=== PATIENT | female | born 1930 | race Caucasian/White ===

== ENCOUNTER 2016-07-30 07:00 | Inpatient (IN) | payer OTHER, MEDICARE ==
[~2016-07-30] VITALS: Ht 160 cm; Wt 64.4 kg
[~2016-07-30 07:00] MED LIST: ADVAIR 250-501 EACH INH; ALPRAZOLAM0.25 M1 PO; DURAGESIC1 EAC1 TOP; LEVOTHYROXINE125 MCG PO; LIDODERM 5% PAT1 PAT EXT; METRONIDAZOLE0.752 TOP; NIZATIDINE PO; PANTOPRAZOLE SO40 M1 PO; POLYETHYLE17 GM/Dos1 PO; PRINIVIL5 M1 PO; PROAIR HFA0.09 MG/Ac INH; RANITIDINE HYD150 M1 PO; SYMBICORT 80-10.2 GM PO; SYSTANE LUBRICAN5 ML OP
[2016-08-09] MEDS ORDERED: ADVAIR 100-501 EACH PO (10:08)
[2016-08-09] MEDS ORDERED: PANTOPRAZOLE SO40 M1 PO (10:08)
[2016-08-09] MEDS ORDERED: LO-DOSE ASPIRIN81 MG PO (10:09)
[2016-08-10] MEDS ORDERED: POLYETHYLENE G255 GM PO (06:48)
--- NOTE | 2016-08-10 10:02 | Operative Report ---
Operative/Inv Procedure Report Surgery Date: 08/10/16 Name of Procedure: Endovascular repair of aortic aneurysm, main body 36 x 14 x 103. Contralateral limb 16 x 13 x 1 24, right extension 16 x 13 x 93. 12 Israeli sheath on the left side 16 Israeli sheath on the right side. Pre-Operative Diagnosis: Expanding infrarenal aortic aneurysm at 6.5 cm. COPD. Post-Operative Diagnosis: Same Estimated Blood Loss: scant Surgeon/Chemical Packager: VALERIY RALPH,RADHA Nasht. Anesthesia: local monitored anesthesi Complications: None Condition: Good Operative/Procedure Note Note: The patient was correctly identified and brought to the operating room. Both groins prepped and draped in usual fashion. Access performed with ultrasound guidance 7 Israeli sheaths bilaterally. 2 Perclose devices were deployed in each groin. Documentation was performed by angiogram that the common femoral arteries were cannulated. Guidewire and catheter was placed into the aorta. Angiogram was performed which identified the renal arteries. The patient was heparinized. The main body was deployed via the right side. Measurements noted above. Contralateral limb was cannulated and the contralateral limb deployed. The same was done in the right side. The entire graft was angioplastied. Completion angiogram showed no evidence of a type I or type II endoleak. The 2 Perclose is any side were deployed and there was no bleeding. There was adequate arterial flow into both feet unchanged from prior to the procedure. Sterile dressings were applied. The patient had a procedure well she remained extubated and was taken to the recovery room area. Findings: Large infrarenal aortic aneurysm 6.5 cm. Small iliacs and common femoral arteries. Discharge Disposition: Critical Care Unit CC: SHARI RALPH,AMELIA Segal
[2016-08-10 12:50] LABS: ABSOLUTE BASOPHIL COUNT 0 /CUMM (0.0-0.2); ABSOLUTE EOSINOPHIL COUNT 0.1 /CUMM (0.0-0.7); ABSOLUTE GRANULOCYTE CT 4.2 /CUMM (1.4-6.5); ABSOLUTE LYMPH COUNT 0.7 /CUMM (1.2-3.4); ABSOLUTE MONOCYTE COUNT 0.5 /CUMM (0.10-0.60); BASOPHIL % 0.3 % (0.0-2.0); EOSINOPHIL % 1.8 % (0-5); GRANULOCYTE % 76.9 % (42.2-75.2); HEMATOCRIT 33.7 % (37-47); MEAN CORPUSCULAR HGB 30.6 PG (27.0-31.0); MEAN CORPUSCULAR HGB CONC 32.8 G/DL (33.0-37.0); MEAN CORPUSCULAR VOLUME 93.1 FL (81.0-99.0); MEAN PLATELET VOLUME 7.2 FL (7.4-10.4); PLATELET COUNT 161 /CUMM (130-400); RBC DISTRIBUTION WIDTH 13.4 % (11.5-14.5); RED BLOOD CELL CT 3.62 /CUMM (4.20-5.40); WHITE BLOOD CELL COUNT 5.4 /CUMM (4.8-10.8)
--- NOTE | 2016-08-10 14:14 | Cons- Cardiology ---
General Information and HPI Consulting Request Date of Consult: 08/10/16 Requested By: RADHA CROOKS MD Reason for Consult: Post operative cardiac management Source of Information: patient, old records Exam Limitations: no limitations History of Present Illness: Pleasant 86 year old female known to me. THe patient is now in the PACU following her endovascular AAA repair. The procedure went well. Subsequently, the patient was noted to have loss of pulses in her left LE and was brought back to the OR. At the moment, she is stable in the PACU. She is awake and alert with no complaints or symptoms. She remains hemodynamically stalbe. Allergies/Medications Allergies: Coded Allergies: NO KNOWN ALLERGIES (NO) (10/12/10) Home Med List: Alprazolam 0.25 MG TABLET 1 TAB PO DAILY NEEDED anxiety (Reported) Aspirin (Lo-Dose Aspirin EC) 81 MG TABLET.DR 1 TAB PO DAILY PROPHO (Reported) Fentanyl (Duragesic) 1 EACH PATCH.TD72 1 PAT TOP Q3D pain (Reported) Fluticasone-Salmeterol (Advair 100-50 Diskus) 100 MCG-50 MCG/DOSE BLST.W.DEV 1 PUFF PO DAILY COPD (Reported) Levothyroxine Sodium 125 MCG TABLET 1 TAB PO DAILY thyroid (Reported) Lisinopril (Prinivil) 5 MG TABLET 1 TAB PO DAILY blood pressure (Reported) Pantoprazole Sodium 40 MG TABLET.DR 1 TAB PO DAILY GERD (Reported) Peg-400/Propylene Glycol (Systane Lubricant Eye Drops 0.4%-0.3% 5 Ml) (Unknown Strength) PUMA 2 DROP OP BID DRY EYES (Reported) Polyethylene Glycol 3350 17 GRAM/DOSE POWDER 17 GM PO DAILY constipation ( Reported) Current Medications: Current Medications Sig/Roosevelt Start time Last Medication Dose Route Stop Time Status Admin Cefazolin Sodium 1,000 MG IQ8 08/10 1900 AC IV 08/11 0001 Protamine Sulfate 50 MG .STK-MED ONE 08/10 08 DC IV 08/10 08 Past History Medical History Neurological: migraine EENT: hearing loss, ROSEACEA DRY EYES Cardiovascular: hypertension, hyperlipidemia Respiratory: bronchitis, COPD, emphysema, pneumonia Gastrointestinal: constipation, GERD, "STOMACH PROBLEMS" Hepatic: NONE Renal: NONE Musculoskeletal: sciatica, R KNEE CYST Psychiatric: SHAKING Endocrine: hypothyroidism Blood Disorders: NONE Cancer(s): L BREAST CA CLOSING MANAGER/Reproductive: NONE Surgical History Surgical History: cholecystectomy, hysterectomy, laminectomy, lumpectomy, L BREAST TUMOR REMOVED SPINAL SURGERY Psychosocial History Who Do You Live With? self Services at Home: None Primary Language: Nepali Smoking Status: Unknown If Ever Smoked Functional Ability ADLs Independent: dressing, eating, toileting, bathing. Ambulation: independent Exam & Diagnostic Data Vital Signs and I&O BP 128/80 P 80 regular R 14 Physical Exam: WD, elderly WF with VSS; alert and oriented HEENT: normal Neck: normal Chest: Clear bilaterally Heart: S1, S2, 1-2/6 systolic murmur Abdomen: normal Ext: normal Labs/Miguel Results: Laboratory Tests 08/10 1230 Chemistry Sodium (137 - 145 mmol/L) 139 Potassium (3.5 - 5.1 mmol/L) 4.0 Chloride (98 - 107 mmol/L) 102 Carbon Dioxide (22 - 30 mmol/L) 32 H Anion Gap (5 - 16) 5 BUN (7 - 17 mg/dL) 12 Creatinine (0.5 - 1.0 mg/dL) 0.6 Estimated GFR (>60 ml/min) > 60 BUN/Creatinine Ratio (7 - 25 %) 20.0 Phosphorus (2.5 - 4.5 mg/dL) 4.1 Magnesium (1.6 - 2.3 mg/dL) 1.8 Hematology CBC w Diff NO MAN DIFF REQ WBC (4.8 - 10.8 /CUMM) 5.4 RBC (4.20 - 5.40 /CUMM) 3.62 L Hgb (12.0 - 16.0 G/DL) 11.1 L Hct (37 - 47 %) 33.7 L MCV (81.0 - 99.0 FL) 93.1 MCH (27.0 - 31.0 PG) 30.6 RDW (11.5 - 14.5 %) 13.4 Plt Count (130 - 400 /CUMM) 161 MPV (7.4 - 10.4 FL) 7.2 L Gran % (42.2 - 75.2 %) 76.9 H Lymphocytes % (20.5 - 51.1 %) 12.1 L Monocytes % (1.7 - 9.3 %) 8.9 Eosinophils % (0 - 5 %) 1.8 Basophils % (0.0 - 2.0 %) 0.3 Absolute Granulocytes (1.4 - 6.5 /CUMM) 4.2 Absolute Lymphocytes (1.2 - 3.4 /CUMM) 0.7 L Absolute Monocytes (0.10 - 0.60 /CUMM) 0.5 Absolute Eosinophils (0.0 - 0.7 /CUMM) 0.1 Absolute Basophils (0.0 - 0.2 /CUMM) 0 PUBS MCHC (33.0 - 37.0 G/DL) 32.8 L Diagnostic Data EKG Results Pending Assessment/Plan Assessment/Plan Assessment: 1. AAA; s/p endovascular repair 2. Calcified coronary arteries on CT 3. HTN 4. HLD 5. COPD 6. Hypothyroid Recommendations: - ICU overnight - Please check ECG tonite and in AM - Otherwise as per the vascular surgery service. Consult Acknowledgment - Thank you for your consult request.
[2016-08-10 16:00] VITALS: BP 151/71
--- NOTE | 2016-08-10 16:06 | Admission Core Measures ---
Admission Lab Results I reviewed the following labs: Laboratory Tests 08/10 1230 Chemistry Sodium (137 - 145 mmol/L) 139 Potassium (3.5 - 5.1 mmol/L) 4.0 Chloride (98 - 107 mmol/L) 102 Carbon Dioxide (22 - 30 mmol/L) 32 H Anion Gap (5 - 16) 5 BUN (7 - 17 mg/dL) 12 Creatinine (0.5 - 1.0 mg/dL) 0.6 Estimated GFR (>60 ml/min) > 60 BUN/Creatinine Ratio (7 - 25 %) 20.0 Phosphorus (2.5 - 4.5 mg/dL) 4.1 Magnesium (1.6 - 2.3 mg/dL) 1.8 Hematology CBC w Diff NO MAN DIFF REQ WBC (4.8 - 10.8 /CUMM) 5.4 RBC (4.20 - 5.40 /CUMM) 3.62 L Hgb (12.0 - 16.0 G/DL) 11.1 L Hct (37 - 47 %) 33.7 L MCV (81.0 - 99.0 FL) 93.1 MCH (27.0 - 31.0 PG) 30.6 RDW (11.5 - 14.5 %) 13.4 Plt Count (130 - 400 /CUMM) 161 MPV (7.4 - 10.4 FL) 7.2 L Gran % (42.2 - 75.2 %) 76.9 H Lymphocytes % (20.5 - 51.1 %) 12.1 L Monocytes % (1.7 - 9.3 %) 8.9 Eosinophils % (0 - 5 %) 1.8 Basophils % (0.0 - 2.0 %) 0.3 Absolute Granulocytes (1.4 - 6.5 /CUMM) 4.2 Absolute Lymphocytes (1.2 - 3.4 /CUMM) 0.7 L Absolute Monocytes (0.10 - 0.60 /CUMM) 0.5 Absolute Eosinophils (0.0 - 0.7 /CUMM) 0.1 Absolute Basophils (0.0 - 0.2 /CUMM) 0 PUBS MCHC (33.0 - 37.0 G/DL) 32.8 L Admission Meds I reviewed the following Meds: Current Medications Sig/Roosevelt Start time Last Medication Dose Stop Time Status Admin Alprazolam 0.25 MG DAILY NEEDED 08/10 1545 AC (Xanax) 08/17 1544 Artificial Tears 2 GTT TID 08/10 1600 AC (Tears Natural) Aspirin Buffered 81 MG DAILY 08/11 1000 AC (Ecotrin) Budesonide/ 2 PUF BID 08/10 2200 AC Formoterol Fumarate (SYMBICORT) Cefazolin Sodium 1,000 MG IQ8 08/10 1900 AC (Kefzol-Ancef Inj) 08/11 0001 Dextrose/Sodium 1,000 ML Q13H 08/10 1515 AC Chloride (D5-Normal Saline) Docusate Sodium 100 MG BID 08/10 2200 AC (Colace) Heparin Sodium 5,000 UNIT Q8 08/10 1400 AC (Porcine) Levothyroxine Sodium 0.125 MG DAILY AC 08/11 0700 AC (Synthroid) Lisinopril 5 MG DAILY 08/10 1537 AC (Prinivil) Morphine Sulfate 2 MG Q4P PRN 08/10 1515 AC (Morphine) Omeprazole 20 MG DAILY AC 08/11 0700 AC (Prilosec) Oxycodone/ 1 TAB Q4P PRN 08/10 1515 AC Acetaminophen (Percocet) Oxycodone/ 2 TAB Q4P PRN 08/10 1515 AC Acetaminophen (Percocet) Polyethylene Glycol 17 GM DAILY 08/11 1000 AC (Miralax) Acute Coronary Syndrome Inclusion Criteria ACS Diagnosis No Inpatient Core Measures LDL Reminder: If No, please order W/I first 24hr of stay Congestive Heart Failure Inclusion Criteria CHF Diagnosis No Cerebrovascular accident Inclusion Criteria CVA/TIA Diagnosis No Inpatient Core Measures Bedside Swallow Eval Reminder: If BSE failed, place ST order Antithrombotic Reminder: Order Antithrombotic Medication by end of day 2 Antithrombotic Reminder: Document Reason Antithrombotic Not ordered by end of day 2 AFIB/Flutter Reminder: If Present, add to problem list AFIB/Flutter Reminder: Order Anticoag Medication for pts with AFIB/Flutter Atherosclerosis Reminder: If Present, add to problem list LDL Reminder: If No, please order W/I first 24hr of stay PT Order Reminder: If No, please order Venous thromboembolism Inpatient Core Measures VTE Risk Factors: Age > 40, Surgery VTE Prophylaxis Ordered Inpt Mech&PHA Contraindicated No Mech VTE prophylaxis d/t Lower limb ischemia, Surgical procedure LE No VTE Pharm Prophylaxis d/t No contraindications Inclusion Criteria - Per Current guidelines, there needs to be overlap - treatment for the first 5 days of Warfarin therapy. - Parenteral Anticoagulation (IV or SC) needs to be - given along with Warfarin therapy. VTE Diagnosis No VTE Type NONE VTE Confirmed by (Test) NONE Problem List As ranked by this Provider includes Assessment & Plan 1. Status post percutaneous abdominal aortic aneurysm (AAA) repair HOME MEDS Home Med List Alprazolam 0.25 MG TABLET 1 TAB PO DAILY NEEDED anxiety (Reported) Aspirin (Lo-Dose Aspirin EC) 81 MG TABLET.DR 1 TAB PO DAILY PROPHO (Reported) Fentanyl (Duragesic) 1 EACH PATCH.TD72 1 PAT TOP Q3D pain (Reported) Fluticasone-Salmeterol (Advair 100-50 Diskus) 100 MCG-50 MCG/DOSE BLST.W.DEV 1 PUFF PO DAILY COPD (Reported) Levothyroxine Sodium 125 MCG TABLET 1 TAB PO DAILY thyroid (Reported) Lisinopril (Prinivil) 5 MG TABLET 1 TAB PO DAILY blood pressure (Reported) Pantoprazole Sodium 40 MG TABLET.DR 1 TAB PO DAILY GERD (Reported) Peg-400/Propylene Glycol (Systane Lubricant Eye Drops 0.4%-0.3% 5 Ml) (Unknown Strength) PUMA 2 DROP OP BID DRY EYES (Reported) Polyethylene Glycol 3350 17 GRAM/DOSE POWDER 17 GM PO DAILY constipation ( Reported)
--- NOTE | 2016-08-10 16:20 | PN- Vascular Surgery ---
Subjective Subjective: poc s/p endo aaa no major complaints now denies cp, sob, no n+v Objective Vital Signs and I&Os hypertensive now Physical Exam: cv: rrr lungs: clear abd: soft, +bs ext: left groin small hematoma sanguinous drainage on dressing distal dp/pt pulses intact legs cool motor/sensory intact granados: clear urine Assessment/Plan Assessment/Plan vascualr stable hypertensive now plan hep sq fro dvt prophylaxis q1 vascular checks restart all home meds plan for home d/c in am Core Measures/Miscellaneous Venous Thromboembolism VTE Risk Factors: Age > 40, Surgery VTE Contraindications: No Contraindications VTE Prophylaxis Ordered Inpt: Mech/Pharm Contraindicate VTE Diagnosis: No VTE Type: NONE VTE Confirmed by (Test): NONE Beta Ramakrishna Is Beta Ramakrishna a Home Med? No Antibiotics Is Patient on Antibiotics? Yes
[2016-08-10] MEDS ORDERED: PERCOCET 5-3251 EACH PO (23:18)
--- NOTE | 2016-08-10 23:23 | Patient Discharge Instructions ---
Discharge Instructions General Discharge Information You were seen/treated for: ABDOMINAL AORTIC ANEURYSM You had these procedures: ENDOVASCULAR AAA REPAIR, TAKE BACK TO OR FOR REMOVAL OF SHEATH Watch for these problems: FEVER >101, COLD LEG, SEVERE LEG PAIN, CHEST PAIN, DIFFICULTY BREATHING No bath, but you may shower: Yes Other wound care: IF DRESSING BECOMES SOILED, IT MAY BE CHANGED WITH GAUZE AND TEGADERM. Diet Continue normal diet: Yes Activity Full Activity/No Limits: No Activity Self Limited: Yes Pounds, do NOT lift more than: 5 Activity Limited to: Weight bear as tolerated Other activity limits: YOU MAY WEIGHT BEAR AND AMBULATE TOLERATED. NO STRENUOUS ACTIVITY OR HEAVY LIFTING. Acute Coronary Syndrome Inclusion Criteria At DC or during hospital stay patient has or had the following: ACS DIAGNOSIS No Discharge Core Measures Meds if any: Prescribed or Continued at Discharge Meds if any: NOT Prescribed or Continued at Discharge Congestive Heart Failure Inclusion Criteria At DC or during hospital stay patient has or had the following: CHF DIAGNOSIS No Discharge Core Measures Meds if any: Prescribed or Continued at Discharge Meds if any: NOT Prescribed or Continued at Discharge Cerebrovascular accident Inclusion Criteria At DC or during hospital stay patient has or had the following: CVA/TIA Diagnosis No Discharge Core Measures Meds if any: Prescribed or Continued at Discharge Meds if any: NOT Prescribed or Continued at Discharge Venous thromboembolism Inclusion Criteria VTE Diagnosis No VTE Type NONE VTE Confirmed by (Test) NONE Discharge Core Measures - Per Current guidelines, there needs to be overlap - treatment for the first 5 days of Warfarin therapy. - If discharged on Warfarin prior to 5 days of - overlap therapy, the patient will need to be - assessed for post discharge needs including - *Post discharge parental anticoagulation - *Warfarin and/or parental anticoagulation education - *Follow up date to check INR post discharge At least 5 days overlap therapy as Inpatient No Meds if any: Prescribed or Continued at Discharge Note: Overlap Therapy is Warfarin and Anticoagulant Meds if any: NOT Prescribed or Continued at Discharge
[2016-08-11 05:39] LABS: ABSOLUTE BASOPHIL COUNT 0 /CUMM (0.0-0.2); ABSOLUTE EOSINOPHIL COUNT 0.1 /CUMM (0.0-0.7); ABSOLUTE MONOCYTE COUNT 1.1 /CUMM (0.10-0.60); BASOPHIL % 0 % (0.0-2.0); HEMATOCRIT 30.9 % (37-47); PLATELET COUNT 157 /CUMM (130-400)
[2016-08-11 05:47] LABS: ABSOLUTE GRANULOCYTE CT 10.1 /CUMM (1.4-6.5); ABSOLUTE LYMPH COUNT 0.7 /CUMM (1.2-3.4); EOSINOPHIL % 0.6 % (0-5); GRANULOCYTE % 84.2 % (42.2-75.2); MEAN CORPUSCULAR HGB 31.3 PG (27.0-31.0); MEAN CORPUSCULAR HGB CONC 33.5 G/DL (33.0-37.0); MEAN CORPUSCULAR VOLUME 93.6 FL (81.0-99.0); MEAN PLATELET VOLUME 7.4 FL (7.4-10.4); RBC DISTRIBUTION WIDTH 13.5 % (11.5-14.5)
[2016-08-11 06:00] VITALS: BP 110/63
--- NOTE | 2016-08-11 06:02 | PN- Vascular Surgery ---
Subjective Subjective: Postoperative day #1 status post endovascular AAA repair, with take back to the OR for removal of sheath and patch repair due to loss of left lower extremity pulses. At this time, patient is seen in ICU. She has no major complaints. Admits to minor discomfort at the left groin site, but refusing pain medication. She had some mild nausea last night, which was relieved with Zofran area did she did spike a temp to 101.1 yesterday, but remains afebrile at this time. Otherwise denies headache, dizziness, chest pain, shortness of breath. [place] catheter and arterial line remain in place. Objective Vital Signs and I&Os Vital Signs Date Time Temp Pulse Resp B/P Pulse O2 O2 Flow FiO2 Ox Delivery Rate 08/11 0400 96 Nasal 2.0L Cannula 08/11 0000 96 Nasal 2.0L Cannula 08/10 2356 99.8 08/10 2318 101.1 08/10 2000 99 Nasal 2.0L Cannula 08/10 1705 97.0 78 19 120/75 08/10 1600 100 Nasal 2.0L Cannula 08/10 1600 97.0 74 21 151/71 100 Nasal 2.0L Cannula 08/10 1430 96 Nasal 2.0L Cannula Most recent temperatures are documented at 99.1 and 98.8. Heart rate in the 100s, blood pressure in the 130s to 150s over 80s to 90s. O2 sat is 95% on 2 L via nasal cannula. Intake & Output 08/11 0800 08/11 0000 08/10 1600 08/10 0800 08/10 0000 08/09 1600 Intake Total 740 Output Total 600 Balance 140 Intake, IV 500 Intake, Oral 240 Output, Urine 600 Patient 142 lb Weight Urine output is 100 mL's per hour. Physical Exam: Gen.: Patient is resting, but easily arousable. She is somewhat hard of hearing. No acute distress. Cardiac: Regular, borderline tachycardia Pulmonary: Lungs are clear bilaterally, but breaths are shallow. Extremities: The left groin dressing was saturated with blood, and subsequently changed by myself. There appears to be no active bleeding from the wound. No significant hematoma. Legs and feet are warm bilaterally. The right DP is palpable and the left DP is dopplerable. Patient is able to move her toes. Results Last 48 Hours of Labs: Laboratory Tests 08/11 08/10 0510 1230 Chemistry Sodium (137 - 145 mmol/L) Pending 139 Potassium (3.5 - 5.1 mmol/L) Pending 4.0 Chloride (98 - 107 mmol/L) Pending 102 Carbon Dioxide (22 - 30 mmol/L) Pending 32 H Anion Gap (5 - 16) Pending 5 BUN (7 - 17 mg/dL) Pending 12 Creatinine (0.5 - 1.0 mg/dL) Pending 0.6 Estimated GFR (>60 ml/min) > 60 BUN/Creatinine Ratio (7 - 25 %) Pending 20.0 Phosphorus (2.5 - 4.5 mg/dL) Pending 4.1 Magnesium (1.6 - 2.3 mg/dL) Pending 1.8 Hematology CBC w Diff MAN DIFF ORDERED NO MAN DIFF REQ WBC (4.8 - 10.8 /CUMM) Pending 5.4 RBC (4.20 - 5.40 /CUMM) Pending 3.62 L Hgb (12.0 - 16.0 G/DL) Pending 11.1 L Hct (37 - 47 %) Pending 33.7 L MCV (81.0 - 99.0 FL) Pending 93.1 MCH (27.0 - 31.0 PG) Pending 30.6 RDW (11.5 - 14.5 %) Pending 13.4 Plt Count (130 - 400 /CUMM) Pending 161 MPV (7.4 - 10.4 FL) Pending 7.2 L Gran % (42.2 - 75.2 %) Pending 76.9 H Lymphocytes % (20.5 - 51.1 %) Pending 12.1 L Monocytes % (1.7 - 9.3 %) Pending 8.9 Eosinophils % (0 - 5 %) Pending 1.8 Basophils % (0.0 - 2.0 %) Pending 0.3 Absolute Granulocytes (1.4 - 6.5 /CUMM) Pending 4.2 Segmented Neutrophils (42.2 - 75.2 %) Pending Absolute Lymphocytes (1.2 - 3.4 /CUMM) Pending 0.7 L Absolute Monocytes (0.10 - 0.60 /CUMM) Pending 0.5 Absolute Eosinophils (0.0 - 0.7 /CUMM) Pending 0.1 Absolute Basophils (0.0 - 0.2 /CUMM) Pending 0 PUBS MCHC (33.0 - 37.0 G/DL) Pending 32.8 L Assessment/Plan Assessment/Plan Patient is an 86-year-old female with history of hypertension, COPD, hyperlipidemia, migraines, and GERD who is now postoperative day #1 status post endovascular AAA, complicated by loss of pulses in the left lower extremity and subsequent take back to the OR for removal of the sheath. -Advance diet as tolerated. Hep-Lock IV fluids. -Follow-up this morning's labs. -Patient can use Tylenol as needed for discomfort. -Okay to remove arterial line and [place] catheter. We will await void. -Incentive spirometer, as the most likely cause of the fever yesterday was atelectasis due to shallow breathing. -24 hours of antibiotic prophylaxis complete. -Subcutaneous heparin for DVT prophylaxis until discharge. -Mobilize out of bed and plan for discharge today from ICU if cleared by cardiology. We will follow-up EKG this morning as per cardiology recommendations. Core Measures/Miscellaneous [place] Catheter Date In: 08/10/16 Still Needed? No Venous Thromboembolism VTE Risk Factors: Age > 40, Surgery VTE Contraindications: No Contraindications VTE Prophylaxis Ordered Inpt: Mech/Pharm Contraindicate VTE Diagnosis: No VTE Type: NONE VTE Confirmed by (Test): NONE Beta Ramakrishna Is Beta Ramakrishna a Home Med? No Antibiotics Is Patient on Antibiotics? No
--- NOTE | 2016-08-11 06:59 | Operative Report ---
Operative/Inv Procedure Report Surgery Date: 08/10/16 Name of Procedure: Left common femoral and / Profundaplasty endarterectomy Patch angioplasty Pre-Operative Diagnosis: s/p EVAR Left cosmetic assembler stenosis Post-Operative Diagnosis: same Estimated Blood Loss: less than 50ml Surgeon/Plastics Fabricator And Assembler: RADHA CROOKS MD Anesthesia: local monitored anesthesi Complications: none Condition: good Operative Indication: Left leg decrease pulses Operative/Procedure Note Note: The patient was correctly identifid and brought to the OR. Time out performed. Both groins prepped. Local anesthetic givem 30 cc, left groin. Incision made . Perclose found, and the PROCESS MAINTENANCE TECHNICIAN, Prifunda and SFA dissected. Proximal and distal control obtained. Endarterectomy done, high grade stenosis due to closing device and severe plaque. Endarterectomy carried down to profunda. Patch sawn. Blood reconstituted. Strong DP and PT signals prior to preopfrom EVAR. The wound closed in [address] Pt. taken to PACU in a satsifactory condition. Findings: High grad stenosi due to plaque and perclose. Discharge Disposition: Critical Care Unit CC: SHARI RALPH,AMELIA Segal
--- NOTE | 2016-08-11 07:04 | PN- Vascular Surgery ---
Surgical Brief Attending Note Brief Attending Note: Doing well, Exam strong signals, wound clean Restart all meds, hep lock IV Ambulate Advance diet Transfer to floor D/C home this PM or in AM if stable
--- NOTE | 2016-08-11 07:19 | Surg Short-stay <48hrs Dis Sum ---
Visit Information Visit Dates Admission Date: 08/10/16 Discharge Date: 08/12/16 Surgical Short Stay DC Summary Admission Diagnosis: Abdominal aortic aneurysm Final Diagnosis: Same Procedure(s): 08/10/2016 endovascular AAA repair with take back to the OR for removal of sheath due to pulseless left lower extremity. Summary/Significant Findings: Patient is an 86-year-old female who presented to [facility] on 08/10/2016 4 elective endovascular AAA repair. She was noted to have a pulseless left lower extremity in the recovery room, at which point the decision was made to return to the OR for exploration. Left groin hematoma was encountered and removal of the sheath with patch repair was performed. She returned to PACU and then the general medical floor in stable condition, with dopplerable signals in the left lower extremity and palpable signals in the right lower extremity. Her diet was slowly advanced and pain was well controlled. She had a fever 101.1 on postoperative day #0, but remained afebrile thereafter with use of incentive spirometer. She was mobilized out of bed and then subsequently cleared for discharge. Of ntoe, PT recommended STR, but pt and her family refused. They explain that she has plenty of support at home. They were accepting of home care services, including home PT, visiting nurse and HH aide. Condition at Discharge: Stable Discharge Disposition: home or self care Discharge instructions provided to patient/family: Yes Post discharge follow-up plan: If the left groin dressing becomes saturated, it can be changed to dry gauze with Tegaderm daily or every other day. Avoid soaking the wound. Follow-up with attending in 2 weeks for removal of haider.
[2016-08-11 08:00] VITALS: BP 122/72
--- NOTE | 2016-08-11 11:10 | RADIOLOGY REPORT ---
EXAMINATION: XR ABDOMEN MULTIPLE VIEWS CLINICAL INDICATION: Endovascular AAA repair in OR. COMPARISON: CT scan of the abdomen and pelvis dated 07/20/2016. TECHNIQUE/FINDINGS: C-arm equipment was dedicated to the operating room for the performance of a AAA repair. Several contrast runs were performed and are archived in PACS. Please refer to operative notes for interpretation. This is an administrative dictation only. FLUOROSCOPY TIME: 14 minutes 37 seconds. IMPRESSION: Endovascular AAA repair in OR.
[2016-08-11 13:40] VITALS: BP 98/50
[2016-08-11 16:32] VITALS: BP 86/42
[2016-08-11 18:10] VITALS: BP 94/50
[2016-08-12 01:23] VITALS: BP 110/549
[2016-08-12 08:17] VITALS: BP 104/61
--- NOTE | 2016-08-12 08:21 | PN- Vascular Surgery ---
Subjective Subjective: No acute events overnight. Afebrile. Pain well controlled. Tolerating diet and voiding spontaneously. No other complaints. Anticipates discharge home today, lives with son. Objective Vital Signs and I&Os Vital Signs Date Time Temp Pulse Resp B/P Pulse O2 O2 Flow FiO2 Ox Delivery Rate 08/12 0123 99.6 93 18 110/549 98 Nasal Cannula 08/12 0000 Nasal 3.0L Cannula 08/11 1810 90 18 94/50 93 Nasal 3.0L Cannula 08/11 1632 98.3 107 20 86/42 98 Nasal 3.0L Cannula 08/11 1354 97 Nasal 3.0L Cannula 08/11 1340 98.5 95 18 98/50 97 Nasal 3.0L Cannula 08/11 0955 Nasal 3.0L Cannula Intake & Output 08/12 1600 08/12 0800 08/12 0000 08/11 1600 08/11 0800 08/11 0000 Intake Total 570 740 Output Total 700 200 550 600 Balance -700 -200 20 140 Intake, IV 450 500 Intake, Oral 120 240 Output, Urine 700 200 550 600 Physical Exam: Gen: alert and oriented. NAD. Hard of hearing. Cardiac: Regular, borderline tachycardia Pulmonary: Decreased breath sounds throughout. Extremities: Left groin dressing clean, dry, intact. No significant hematoma. Legs and feet are warm bilaterally. The right DP is palpable and the left PT/DP is dopplerable. Wiggles toes. Current Medications: Current Medications Sig/[place] Start time Last Medication Dose Route Stop Time Status Admin Acetaminophen 650 MG Q4P PRN 08/11 1115 AC 08/11 PO 1407 Acetaminophen 650 MG Q4P PRN 08/10 2315 DC 08/10 PO 2318 Alprazolam 0.25 MG DAILY NEEDED PRN 08/11 1115 AC PO 08/18 1114 Alprazolam 0.25 MG DAILY NEEDED 08/10 1545 DC PO 08/17 1544 Artificial Tears 2 GTT TID 08/11 1600 AC 08/11 OPH 2124 Artificial Tears 2 GTT TID 08/10 1600 DC 08/11 OPH 0808 Aspirin Buffered 81 MG DAILY 08/12 1000 AC PO Aspirin Buffered 81 MG DAILY 08/11 1000 DC 08/11 PO 0808 Budesonide/ 2 PUF BID 08/110 AC Formoterol Fumarate INH Budesonide/ 2 PUF BID 08/10 2199 DC 08/11 Formoterol Fumarate INH 0807 Docusate Sodium 100 MG BID 08/11 2200 AC 08/11 PO 2123 Docusate Sodium 100 MG BID 08/10 2200 DC 08/11 PO 0807 Fentanyl Citrate 25 MCG Q3D 08/11 1730 AC 08/11 TOP 1800 Heparin Sodium 5,000 UNIT Q8 08/11 1400 AC 08/12 (Porcine) SC 0555 Heparin Sodium 5,000 UNIT Q8 08/10 1400 DC 08/11 (Porcine) SC 0618 Levothyroxine Sodium 0.125 MG DAILY AC 08/12 0700 AC 08/12 PO 0556 Levothyroxine Sodium 0.125 MG DAILY AC 08/11 0700 DC 08/11 PO 0618 Lisinopril 5 MG DAILY 08/12 1000 AC PO Lisinopril 5 MG DAILY 08/10 1537 DC 08/11 PO 0808 Morphine Sulfate 2 MG Q4P PRN 08/11 1115 AC IV Morphine Sulfate 2 MG Q4P PRN 08/10 1515 DC IV Omeprazole 20 MG DAILY AC 08/12 0700 AC 08/12 PO 0555 Omeprazole 20 MG DAILY AC 08/11 0700 DC 08/11 PO 0618 Ondansetron HCl 4 MG Q6P PRN 08/11 1115 AC IV Ondansetron HCl 4 MG Q6P PRN 08/10 2115 DC 08/10 IV 2124 Oxycodone/ 1 TAB Q4P PRN 08/11 1115 AC 08/12 Acetaminophen PO 0609 Oxycodone/ 2 TAB Q4P PRN 08/11 1115 AC Acetaminophen PO Oxycodone/ 1 TAB Q4P PRN 08/10 1515 DC Acetaminophen PO Oxycodone/ 2 TAB Q4P PRN 08/10 1515 DC Acetaminophen PO Polyethylene Glycol 17 GM DAILY 08/12 1000 AC PO Polyethylene Glycol 17 GM DAILY 08/11 1000 DC 08/11 PO 0807 Sodium Chloride 250 ML BOLUS ONE 08/11 1600 DC 08/11 IV 08/11 1659 1623 Results Last 48 Hours of Labs: Laboratory Tests 08/12 08/11 0645 0510 Chemistry Sodium (137 - 145 mmol/L) 138 Potassium (3.5 - 5.1 mmol/L) 3.7 Chloride (98 - 107 mmol/L) 100 Carbon Dioxide (22 - 30 mmol/L) 33 H Anion Gap (5 - 16) 5 BUN (7 - 17 mg/dL) 8 Creatinine (0.5 - 1.0 mg/dL) 0.7 Estimated GFR (>60 ml/min) > 60 BUN/Creatinine Ratio (7 - 25 %) 11.4 Phosphorus (2.5 - 4.5 mg/dL) 3.7 Magnesium (1.6 - 2.3 mg/dL) 1.7 Hematology CBC w Diff Pending MAN DIFF ORDERED WBC (4.8 - 10.8 /CUMM) Pending 12.0 H RBC (4.20 - 5.40 /CUMM) Pending 3.30 L Hgb (12.0 - 16.0 G/DL) Pending 10.3 L Hct (37 - 47 %) Pending 30.9 L MCV (81.0 - 99.0 FL) Pending 93.6 MCH (27.0 - 31.0 PG) Pending 31.3 H RDW (11.5 - 14.5 %) Pending 13.5 Plt Count (130 - 400 /CUMM) Pending 157 MPV (7.4 - 10.4 FL) Pending 7.4 Gran % (42.2 - 75.2 %) 84.2 H Lymphocytes % (20.5 - 51.1 %) 5.7 L Monocytes % (1.7 - 9.3 %) 9.5 H Eosinophils % (0 - 5 %) 0.6 Basophils % (0.0 - 2.0 %) 0 L Absolute Granulocytes (1.4 - 6.5 /CUMM) 10.1 H Absolute Lymphocytes (1.2 - 3.4 /CUMM) 0.7 L Absolute Monocytes (0.10 - 0.60 /CUMM) 1.1 H Absolute Eosinophils (0.0 - 0.7 /CUMM) 0.1 Absolute Basophils (0.0 - 0.2 /CUMM) 0 Platelet Estimate (ADEQUATE) ADEQUATE Normocytic RBCs VERIFIED Normochromic RBCs VERIFIED PUBS MCHC (33.0 - 37.0 G/DL) Pending 33.5 08/10 1230 Chemistry Sodium (137 - 145 mmol/L) 139 Potassium (3.5 - 5.1 mmol/L) 4.0 Chloride (98 - 107 mmol/L) 102 Carbon Dioxide (22 - 30 mmol/L) 32 H Anion Gap (5 - 16) 5 BUN (7 - 17 mg/dL) 12 Creatinine (0.5 - 1.0 mg/dL) 0.6 Estimated GFR (>60 ml/min) > 60 BUN/Creatinine Ratio (7 - 25 %) 20.0 Phosphorus (2.5 - 4.5 mg/dL) 4.1 Magnesium (1.6 - 2.3 mg/dL) 1.8 Hematology CBC w Diff NO MAN DIFF REQ WBC (4.8 - 10.8 /CUMM) 5.4 RBC (4.20 - 5.40 /CUMM) 3.62 L Hgb (12.0 - 16.0 G/DL) 11.1 L Hct (37 - 47 %) 33.7 L MCV (81.0 - 99.0 FL) 93.1 MCH (27.0 - 31.0 PG) 30.6 RDW (11.5 - 14.5 %) 13.4 Plt Count (130 - 400 /CUMM) 161 MPV (7.4 - 10.4 FL) 7.2 L Gran % (42.2 - 75.2 %) 76.9 H Lymphocytes % (20.5 - 51.1 %) 12.1 L Monocytes % (1.7 - 9.3 %) 8.9 Eosinophils % (0 - 5 %) 1.8 Basophils % (0.0 - 2.0 %) 0.3 Absolute Granulocytes (1.4 - 6.5 /CUMM) 4.2 Absolute Lymphocytes (1.2 - 3.4 /CUMM) 0.7 L Absolute Monocytes (0.10 - 0.60 /CUMM) 0.5 Absolute Eosinophils (0.0 - 0.7 /CUMM) 0.1 Absolute Basophils (0.0 - 0.2 /CUMM) 0 PUBS MCHC (33.0 - 37.0 G/DL) 32.8 L Assessment/Plan Assessment/Plan This is an 86-year-old female 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 - pain control: percocet, morphine prn. Fentanyl patch (home medication) - Bowel regimen: Colace BID, Miralax - heart healthy diet - strict I&Os - DVT prophylaxis: SQH - home medications restarted - CBC reviewed - PT: continue ambulation - Dispo: discharge home today with son after PT clearance Core Measures/Miscellaneous [place] Catheter Date In: 08/10/16 Venous Thromboembolism VTE Risk Factors: Age > 40, Surgery VTE Contraindications: No Contraindications VTE Prophylaxis Ordered Inpt: Mech/Pharm Contraindicate VTE Diagnosis: No VTE Type: NONE VTE Confirmed by (Test): NONE Beta Ramakrishna Is Beta Ramakrishna a Home Med? No Antibiotics Is Patient on Antibiotics? No
[2016-08-12 08:37] LABS: ABSOLUTE BASOPHIL COUNT 0 /CUMM (0.0-0.2); ABSOLUTE EOSINOPHIL COUNT 0.1 /CUMM (0.0-0.7); ABSOLUTE GRANULOCYTE CT 7.9 /CUMM (1.4-6.5); ABSOLUTE LYMPH COUNT 0.7 /CUMM (1.2-3.4); ABSOLUTE MONOCYTE COUNT 1.1 /CUMM (0.10-0.60); BASOPHIL % 0 % (0.0-2.0); EOSINOPHIL % 1.1 % (0-5); GRANULOCYTE % 80.6 % (42.2-75.2); HEMATOCRIT 29.9 % (37-47); MEAN CORPUSCULAR HGB 31.9 PG (27.0-31.0); MEAN CORPUSCULAR HGB CONC 33.7 G/DL (33.0-37.0); MEAN CORPUSCULAR VOLUME 94.4 FL (81.0-99.0); MEAN PLATELET VOLUME 7.9 FL (7.4-10.4); PLATELET COUNT 140 /CUMM (130-400); RBC DISTRIBUTION WIDTH 13.6 % (11.5-14.5); RED BLOOD CELL CT 3.17 /CUMM (4.20-5.40); WHITE BLOOD CELL COUNT 9.8 /CUMM (4.8-10.8)
[2016-08-12 10:07] VITALS: BP 104/61
--- NOTE | 2016-08-12 13:43 | Event Note ---
Event Note Event Note: Pt was seen by the surgical PA this morning and deemed stable for discharge. Upon leaving, it was determined that PT recommendations were for short term rehab. I discussed with the patient and her son, who both refuse STR without reservation. Her son states that there are several family members available to help at home. Case management was in to discuss alternatives. They are accepting of home services, including PT, nursing, and home health aide. Pt has a rolling walker at home, which she was advised to use. She also has O2 setup which is typically used at night, and understands there may be an occassional need for it during the day as well. I spoke with Dr. Sheehan who is the covering surgeon, and he is in agreement.
== END 2016-08-12 13:34 | disposition home health service (06) | DRG 269 ==
LOC: CANRESERV → ENRESERVDT → ENRESERVTM → ENPENDDIS 08-10 02:53 → SDA 08-10 02:53 → CRI 08-10 14:46 → 2NB 08-11 13:13
PROVIDERS: Physician Assistant Surgical; ADMIT Surgery Vascular Surgery
PROC: 04V04DZ Restriction of Abdominal Aorta with Intraluminal Device, Percutaneous Endoscopic Approach (ICD-10-PCS; principal; 2016-08-10)
PROC: 04CL0ZZ Extirpation of Matter from Left Femoral Artery, Open Approach (ICD-10-PCS; 2016-08-10)
PROC: 04UL0KZ Supplement Left Femoral Artery with Nonautologous Tissue Substitute, Open Approach (ICD-10-PCS; 2016-08-10)
PROC: 04CY0ZZ Extirpation of Matter from Lower Artery, Open Approach (ICD-10-PCS; 2016-08-10)
DX: I71.4 Abdominal aortic aneurysm, without rupture (principal); J44.9 Chronic obstructive pulmonary disease, unspecified; I10 Essential (primary) hypertension; I70.202 Unspecified atherosclerosis of native arteries of extremities, left leg; E78.5 Hyperlipidemia, unspecified; E03.9 Hypothyroidism, unspecified
CPT/HCPCS: 2NBP; CCU; 36415; 74020; 78452; 82436; 86920; 86922; 87086; 88304; 93005; 93010; 93016; 93017; 97161-GP; 97530-GO; A9502; C1725; C1760; J0131; J0690; J1245; J1644; J2405; J2720; J3490; J7040; J7042; Q9965; Q9967

== ENCOUNTER 2016-10-30 23:38 | Emergency (ER) | payer OTHER, MEDICARE ==
[~2016-10-30] VITALS: Ht 157.5 cm; Wt 62.6 kg
[~2016-10-30 23:38] MED LIST changes: +ADVAIR 100-501 EACH PO; +LO-DOSE ASPIRIN81 MG PO; +PERCOCET 5-3251 EACH PO; +POLYETHYLENE G255 GM PO
--- NOTE | 2016-10-31 00:07 | ED MVC/FALL/TRAUMA COMPLAINT ---
History of Present Illness General Chief Complaint: Fall Stated Complaint: BIBA FALL Source: patient, family (SON) Exam Limitations: no limitations Vital Signs & Intake/Output Vital Signs & Intake/Output Vital Signs Date Time Temp Pulse Resp B/P B/P Pulse O2 O2 Flow FiO2 Mean Ox Delivery Rate 10/31 0110 96 Nasal 5.0L Cannula 10/30 2347 97.3 113 24 150/87 92 Nasal 6.0L Cannula ED Intake and Output 10/31 0000 10/30 1200 Intake Total Output Total Balance Patient 138 lb Weight Allergies Coded Allergies: NO KNOWN ALLERGIES (NO) (10/12/10) Reconcile Medications Alprazolam 0.25 MG TABLET 1 TAB PO DAILY NEEDED anxiety (Reported) Aspirin (Lo-Dose Aspirin EC) 81 MG TABLET.DR 1 TAB PO DAILY PROPHO (Reported) Fentanyl (Duragesic) 1 EACH PATCH.TD72 1 PAT TOP Q3D pain (Reported) Fluticasone-Salmeterol (Advair 100-50 Diskus) 100 MCG-50 MCG/DOSE BLST.W.DEV 1 PUFF PO DAILY COPD (Reported) Levothyroxine Sodium 125 MCG TABLET 1 TAB PO DAILY thyroid (Reported) Lisinopril (Prinivil) 5 MG TABLET 1 TAB PO DAILY blood pressure (Reported) Oxycodone HCl/Acetaminophen (Percocet 5-325 MG Tablet) 5 MG-325 MG TABLET 1-2 TAB PO Q6P PRN PAIN Pantoprazole Sodium 40 MG TABLET.DR 1 TAB PO DAILY GERD (Reported) Peg-400/Propylene Glycol (Systane Lubricant Eye Drops 0.4%-0.3% 5 Ml) (Unknown Strength) PUMA 2 DROP OP BID DRY EYES (Reported) Polyethylene Glycol 3350 17 GRAM/DOSE POWDER 17 GM PO DAILY constipation ( Reported) Triage Nurses Notes Reviewed? yes HPI: Patient presents for evaluation of injury sustained status post fall about 910 this evening while at home. Apparently patient fell in the kitchen and was unable to get up secondary to severe and sharp left chest and left hip pain. Her son arrived at about 10:30 this evening to find her on the floor. The patient reports a simple mechanical fall with no loss of consciousness or syncope. Her pains of been severe constant and get worse with movement and palpation. Past History Travel History Traveled to [place] past 21 day No Medical History Any Pertinent Medical History? see below for history Neurological: migraine EENT: hearing loss, ROSEACEA DRY EYES Cardiovascular: hypertension, hyperlipidemia Respiratory: bronchitis, COPD, emphysema, pneumonia Gastrointestinal: constipation, GERD, "STOMACH PROBLEMS" Hepatic: NONE Renal: NONE Musculoskeletal: sciatica, R KNEE CYST Psychiatric: SHAKING Endocrine: hypothyroidism Blood Disorders: NONE Cancer(s): L BREAST CA PAYROLL AND BENEFITS ANALYST/Reproductive: NONE History of MRSA: No History of VRE: No History of CDIFF: No Pneumonia Vaccine: 03/26/08 Influenza Vaccine: 03/17/16 Surgical History Surgical History: cholecystectomy, hysterectomy, laminectomy, lumpectomy, L BREAST TUMOR REMOVED SPINAL SURGERY Psychosocial History Who do you live with Patient/Self Services at Home None What is your primary language Bengali Family History Hx Contributory? No Review of Systems Review of Systems Constitutional: Reports: no symptoms. Eyes: Reports: no symptoms. Ears, Nose, Throat, Mouth: Reports: no symptoms. Respiratory: Reports: no symptoms. Cardiovascular: Reports: no symptoms. Gastrointestinal/Abdominal: Reports: no symptoms. Genitourinary: Reports: no symptoms. Musculoskeletal: Reports: see HPI. Skin: Reports: no symptoms. Neurological/Psychological: Reports: no symptoms. All Other Systems: Reviewed and Negative Physical Exam Physical Exam General Appearance: SEE BELOW Comments: Gen.: Well-nourished, well-developed, no acute respiratory distress. Head: Normocephalic, atraumatic, nontender. Eyes: Normal inspection bilaterally, rosa, EOMI Ears: Normal inspection bilaterally Nose: Normal inspection Throat/mouth : Moist mucosa Neck: Supple, full range of motion, no goiter, nontender Heart: Regular rate and rhythm, no murmurs rubs or gallops Lungs: Clear to auscultation bilaterally with normal air entry Chest: Tenderness and crepitus over the left inferior chest Back: Normal range of motion, nontender Abdomen: Soft, nontender, nondistended, normal bowel sounds Pelvis: Stable and nontender Extremities: Bilateral lower extremity pitting edema, mild stasis dermatitis, tenderness with palpation and range of motion of the left hip. The left lower extremity is neurovascularly intact distally. Neurologic: Cranial nerves grossly intact, speech is clear Skin: warm and dry and without ecchymoses or soft tissue swelling or erythema Psychiatric: Calm, cooperative, no apparent delusions or hallucinations Core Measures ACS in differential dx? No Severe Sepsis Present: No Septic Shock Present: No Progress Differential Diagnosis: rib fracture, pneumothorax, hemothorax, left hip fracture, sprain, contusion Plan of Care: Orders Procedure Date/time Status Add-on Test (ER Only) 10/31 004 Active CREATINE PHOSPHOKINASE 10/31 001 Complete URINALYSIS 10/31 4 Active TROPONIN LEVEL 10/31 4 Complete PROTHROMBIN TIME 10/31 4 Complete LIPASE 10/31 4 Complete COMPREHENSIVE METABOLIC PANEL 10/31 4 Complete CBC WITHOUT DIFFERENTIAL 10/31 4 Complete EKG 10/31 4 Active Laboratory Tests 10/31/16 0106: Urine Color Pending, Urine Clarity Pending, Urine pH Pending, Ur Specific Glenvil Pending, Urine Protein Pending, Urine Ketones Pending, Urine Nitrite Pending, Urine Bilirubin Pending, Urine Urobilinogen Pending, Ur Leukocyte Esterase Pending, Ur Microscopic Pending, Urine Hemoglobin Pending, Urine Glucose Pending 10/31/16 0015: Anion Gap 9, Estimated GFR > 60, BUN/Creatinine Ratio 20.0, Glucose 226 H, Calcium 8.4, Total Bilirubin 0.6, AST 33, ALT 30, Alkaline Phosphatase 90, Creatine Kinase 119, Troponin I 1.37 *H, Total Protein 6.1 L, Albumin 3.6, Globulin 2.5, Albumin/Globulin Ratio 1.4, Lipase 28, PT 11.6, INR 1.11, CBC w Diff MAN DIFF ORDERED, RBC 4.17 L, MCV 92.6, MCH 30.7, RDW 13.8, MPV 7.3 L, Gran % 91.9 H, Lymphocytes % 3.2 L, Monocytes % 4.5, Eosinophils % 0.1, Basophils % 0.3, Absolute Granulocytes 15.2 H, Segmented Neutrophils 92 H, Band Neutrophils 1, Absolute Lymphocytes 0.5 L, Lymphocytes 3 L, Monocytes 4, Absolute Monocytes 0.7 H, Absolute Eosinophils 0, Absolute Basophils 0, Platelet Estimate ADEQUATE, Polychromasia 1+, Poikilocytosis 1+, Ovalocytes FEW, Stomatocytes 1+, PUBS MCHC 33.2, Fld Total RBCs Counted 100 Diagnostic Imaging: Discussed w/RAD: CT Scan. Radiology Impression: PATIENT: RHETT MAYA PRESENT AGE: 86 PATIENT ACCOUNT NO: [id number] : 32 LOCATION: [facility] ORDERING PHYSICIAN: GUNNAR FRANCO MD SERVICE DATE: 10/31/16 EXAM TYPE: CAT - CT LOWER EXT WO IV CONTRAST EXAMINATION: CT LOWER EXTREMITY WITHOUT CONTRAST, LEFT CLINICAL INFORMATION: Left hip pain after fall. Numerous sided rib fractures. COMPARISON: Same day abdominal and pelvic CT. TECHNIQUE: Contiguous helical images of the left hip were obtained without IV contrast. The plantar reconstructions were performed. DLP: 1968 mGy-cm FINDINGS: There is a left subcapital femoral neck fracture with resultant varus angulation and lateral displacement of the distal fracture fragment. The left femoral head is seated within a well-formed acetabulum. There is no pelvic free fluid. IMPRESSION: Left femoral neck fracture with resultant varus angulation. DICTATED BY: MARJORIE RUBI MD DATE/TIME DICTATED:10/31/16112 CAREERS ADVISER: ANTIONETTE DATE/TIME TRANSCRIBED:10/31/16112 CONFIDENTIAL, DO NOT COPY WITHOUT APPROPRIATE AUTHORIZATION. <Electronically signed in Other Vendor System> SIGNED BY: MARJORIE RUBI MD 10/31/16 0120, PATIENT: RHETT MAYA PRESENT AGE: 86 PATIENT ACCOUNT NO: [id number] : 32 LOCATION: [facility] ORDERING PHYSICIAN: GUNNAR FRANCO MD SERVICE DATE: 10/31/16 EXAM TYPE: CAT - CT ABD & PELVIS W/O IV CONTRAS; CT CHEST WO IV CONTRAST EXAMINATION: CT CHEST, ABDOMEN AND PELVIS WITHOUT CONTRAST CLINICAL INFORMATION: And after fall. Left-sided crepitus. Concern for rib fractures. COMPARISON: July 20, 2016. TECHNIQUE: Contiguous axial thin section helical images of the chest, abdomen and pelvis were performed without oral or IV contrast. The data set was reformatted in the coronal and sagittal planes and reviewed on an independent workstation. DLP: 548 mGy-cm. FINDINGS: The heart is of normal size. There is a small pericardial effusion. There is neither mediastinal, hilar nor axillary lymphadenopathy. There are no chest wall masses. Clips are present within the left axilla. Review of lung windows demonstrates moderate bilateral, left greater than right, pleural effusions. Within the lateral aspect of the lower left hemithorax, there is higher attenuation pleural fluid likely technical account representative of blood. There is associated passive atelectasis. There are manifestations of emphysema present. There is a calcified granuloma within the left apex measuring approximately 5 mm. There is a noncalcified nodule within the medial segment right middle lobe on image 362/1008 measuring 5 mm. The liver is of normal size and attenuation without focal lesions nor intrahepatic biliary ductal dilation. The patient is status post cholecystectomy. Surgical clips are identified. The spleen, pancreas, adrenal glands are unremarkable. Both kidneys are of normal size and attenuation without hydronephrosis or nephrolithiasis. There is no abdominal free fluid. There is neither mesenteric nor retroperitoneal lymphadenopathy. There is a stable abdominal aortic aneurysm with an aortobifemoral stent in place. There is sigmoid diverticulosis without evidence of diverticulitis; otherwise, unremarkable unopacified loops of small and large bowel are identified. There is no pelvic free fluid. The urinary bladder is unremarkable. There is neither pelvic nor inguinal lymphadenopathy. Bone windows: Neither sclerotic nor lytic bone lesions are identified. There are lateral seventh through 10th rib fractures. There is moderate displacement of the eighth and ninth rib fractures. There is a subcapital left femoral neck fracture with resultant varus angulation. IMPRESSION: Left lateral seventh through 10th rib fractures. Moderate bilateral pleural effusions with a likely hemothorax on the left. Bibasilar airspace disease. Emphysema. Small pericardial effusion. Left femoral neck fracture. 6 mm right middle lobe nodule. Various management parameters for solitary pulmonary nodules are in the literature. According to the Fleischner Society, recommendations for pulmonary nodules are as follows: Nodule size < or = to 4 mm in LOW RISK PATIENTS: No follow up needed. Nodule size < or = to 4 mm in HIGH RISK PATIENTS: Follow up CT at 12 months; if unchanged, no further follow up. Nodule size > 4-6 mm in LOW RISK PATIENTS: Follow up CT at 12 months; if unchanged, no further follow up. Nodule size > 4-6 mm in HIGH RISK PATIENTS: Initial follow up CT at 6-12 months, then at 18-24 months if no change. Nodule size > 6-8 mm in LOW RISK PATIENTS: Initial follow up CT at 6-12 months, then at 18-24 months if no change. Nodule size > 6-8 mm in HIGH RISK PATIENTS: Initial follow up CT at 3-6 months, then 9-12 months and 24 months if no change. Nodule size > 8 mm in LOW RISK PATIENTS: Follow up CT at around 3, 9, and 24 months, dynamic contrast-enhanced CT, PET, and/or biopsy. Nodule size > 8 mm in HIGH RISK PATIENTS: Same as for low-risk patients. DICTATED BY: MARJORIE RUBI MD DATE/TIME DICTATED:10/31/16101 CAREERS ADVISER:ANTIONETTE DATE/TIME TRANSCRIBED:10/31/16101 CONFIDENTIAL, DO NOT COPY WITHOUT APPROPRIATE AUTHORIZATION. <Electronically signed in Other Vendor System> SIGNED BY: MARJORIE RUBI MD 10/31/16 0118 Initial ED EKG: sinus tachycardia with a ventricular rate of 125 Prior EKG: changed (not tachycardic on prior) Comments: 10/31/2016 1:38:13 AM case d/w dr. tomas Vela, [place] [facility]. Accepted in transfer. 10/31/2016 1:51:59 AM I have updated Dr. Vela on the elevated troponin. There are no concerning EKG changes other than sinus tachycardia so I doubt an acute MA. This is likely demand ischemia. Departure Departure Disposition: OTHER [facility] (ACUTE) Condition: Stable Clinical Impression Primary Impression: Right rib fracture Qualifiers: Encounter type: initial encounter Rib fracture type: multiple ribs Fracture type: closed Qualified Code: S22.41XA - Multiple fractures of ribs, right side, initial encounter for closed fracture Secondary Impressions: Closed left hip fracture Qualifiers: Encounter type: initial encounter Qualified Code: S72.002A - Fracture of unspecified part of neck of left femur, initial encounter for closed fracture Elevated troponin Referrals: AMELIA MCCARTHY MD (PCP/Family) Departure Forms: Customer Survey General Discharge Information Critical Care Note Critical Care Note Critical Care Time: 30-74 min
[2016-10-31 00:30] LABS: ABSOLUTE BASOPHIL COUNT 0 /CUMM (0.0-0.2); ABSOLUTE EOSINOPHIL COUNT 0 /CUMM (0.0-0.7); ABSOLUTE GRANULOCYTE CT 15.2 /CUMM (1.4-6.5); ABSOLUTE LYMPH COUNT 0.5 /CUMM (1.2-3.4); ABSOLUTE MONOCYTE COUNT 0.7 /CUMM (0.10-0.60); BASOPHIL % 0.3 % (0.0-2.0); EOSINOPHIL % 0.1 % (0-5); GRANULOCYTE % 91.9 % (42.2-75.2); HEMATOCRIT 38.6 % (37-47); MEAN CORPUSCULAR HGB 30.7 PG (27.0-31.0); MEAN CORPUSCULAR HGB CONC 33.2 G/DL (33.0-37.0); MEAN CORPUSCULAR VOLUME 92.6 FL (81.0-99.0); MEAN PLATELET VOLUME 7.3 FL (7.4-10.4); PLATELET COUNT 175 /CUMM (130-400); RBC DISTRIBUTION WIDTH 13.8 % (11.5-14.5); RED BLOOD CELL CT 4.17 /CUMM (4.20-5.40); WHITE BLOOD CELL COUNT 16.5 /CUMM (4.8-10.8)
[2016-10-31 00:31] LABS: PT 11.6 SEC (9.4-12.5)
--- NOTE | 2016-10-31 01:18 | CT SCAN REPORT ---
EXAMINATION: CT CHEST, ABDOMEN AND PELVIS WITHOUT CONTRAST CLINICAL INFORMATION: And after fall. Left-sided crepitus. Concern for rib fractures. COMPARISON: July 20, 2016. TECHNIQUE: Contiguous axial thin section helical images of the chest, abdomen and pelvis were performed without oral or IV contrast. The data set was reformatted in the coronal and sagittal planes and reviewed on an independent workstation. DLP: 548 mGy-cm. FINDINGS: The heart is of normal size. There is a small pericardial effusion. There is neither mediastinal, hilar nor axillary lymphadenopathy. There are no chest wall masses. Clips are present within the left axilla. Review of lung windows demonstrates moderate bilateral, left greater than right, pleural effusions. Within the lateral aspect of the lower left hemithorax, there is higher attenuation pleural fluid likely mortician supplies sales representative of blood. There is associated passive atelectasis. There are manifestations of emphysema present. There is a calcified granuloma within the left apex measuring approximately 5 mm. There is a noncalcified nodule within the medial segment right middle lobe on image 362/1008 measuring 5 mm. The liver is of normal size and attenuation without focal lesions nor intrahepatic biliary ductal dilation. The patient is status post cholecystectomy. Surgical clips are identified. The spleen, pancreas, adrenal glands are unremarkable. Both kidneys are of normal size and attenuation without hydronephrosis or nephrolithiasis. There is no abdominal free fluid. There is neither mesenteric nor retroperitoneal lymphadenopathy. There is a stable abdominal aortic aneurysm with an aortobifemoral stent in place. There is sigmoid diverticulosis without evidence of diverticulitis; otherwise, unremarkable unopacified loops of small and large bowel are identified. There is no pelvic free fluid. The urinary bladder is unremarkable. There is neither pelvic nor inguinal lymphadenopathy. Bone windows: Neither sclerotic nor lytic bone lesions are identified. There are lateral seventh through 10th rib fractures. There is moderate displacement of the eighth and ninth rib fractures. There is a subcapital left femoral neck fracture with resultant varus angulation. IMPRESSION: Left lateral seventh through 10th rib fractures. Moderate bilateral pleural effusions with a likely hemothorax on the left. Bibasilar airspace disease. Emphysema. Small pericardial effusion. Left femoral neck fracture. 6 mm right middle lobe nodule. Various management parameters for solitary pulmonary nodules are in the literature. According to the Fleischner Society, recommendations for pulmonary nodules are as follows: Nodule size < or = to 4 mm in LOW RISK PATIENTS: No follow up needed. Nodule size < or = to 4 mm in HIGH RISK PATIENTS: Follow up CT at 12 months; if unchanged, no further follow up. Nodule size > 4-6 mm in LOW RISK PATIENTS: Follow up CT at 12 months; if unchanged, no further follow up. Nodule size > 4-6 mm in HIGH RISK PATIENTS: Initial follow up CT at 6-12 months, then at 18-24 months if no change. Nodule size > 6-8 mm in LOW RISK PATIENTS: Initial follow up CT at 6-12 months, then at 18-24 months if no change. Nodule size > 6-8 mm in HIGH RISK PATIENTS: Initial follow up CT at 3-6 months, then 9-12 months and 24 months if no change. Nodule size > 8 mm in LOW RISK PATIENTS: Follow up CT at around 3, 9, and 24 months, dynamic contrast-enhanced CT, PET, and/or biopsy. Nodule size > 8 mm in HIGH RISK PATIENTS: Same as for low-risk patients.
--- NOTE | 2016-10-31 01:20 | CT SCAN REPORT ---
EXAMINATION: CT LOWER EXTREMITY WITHOUT CONTRAST, LEFT CLINICAL INFORMATION: Left hip pain after fall. Numerous sided rib fractures. COMPARISON: Same day abdominal and pelvic CT. TECHNIQUE: Contiguous helical images of the left hip were obtained without IV contrast. The plantar reconstructions were performed. DLP: 1968 mGy-cm FINDINGS: There is a left subcapital femoral neck fracture with resultant varus angulation and lateral displacement of the distal fracture fragment. The left femoral head is seated within a well-formed acetabulum. There is no pelvic free fluid. IMPRESSION: Left femoral neck fracture with resultant varus angulation.
[2016-10-31 02:25] VITALS: BP 125/78
== END 2016-10-31 02:12 | disposition short-term general hospital (02) ==
LOC: ERH 23:38
PROVIDERS: Emergency Medicine
DX: S22.41XA Multiple fractures of ribs, right side, initial encounter for closed fracture (principal); S72.002A Fracture of unspecified part of neck of left femur, initial encounter for closed fracture; R07.9 Chest pain, unspecified; W19.XXXA Unspecified fall, initial encounter; Y92.010 Kitchen of single-family (private) house as the place of occurrence of the external cause; Y93.9 Activity, unspecified
CPT/HCPCS: 74176; 81001; 93005; 93010; 96374; 96376